=== PATIENT | male | born 1955 | race Caucasian/White ===

== ENCOUNTER 2018-03-31 20:33 | Emergency (ER) | payer OTHER ==
--- NOTE | 2018-03-31 20:54 | Emergency Department Record ---
History of Present Illness - General Chief Complaint: Ankle/Foot Injury Stated Complaint: LT FOOT PAIN Time Seen by Provider: 03/31/18 20:49 Source: Patient Mode of Arrival: Ambulatory Limitations: No limitations - History of Present Illness Initial Comments: 62 yo male presents to ED for evaluation of pain to the left foot following injury while at work. Patient accidentally set a large weighted onto the left foot while moving the object at work. Patient denies other injury on examination, reports that he is able to ambulate with pain but without difficulty. Patient denies health problems at his baseline. MD Complaint: Foot injury Onset/Timin -: Minutes(s) Injury: Toes: Left Type of Injury: Other Place: Work Severity: Moderate Severity scale (1-10): 5 Improves With: Immobilization Worsens With: Palpation Context: Walking - Related Data Previous Rx's Medication Instructions Recorded Tramadol HCl [Ultram] 50 mg PO Q8H PRN #9 tab 03/31/18 Allergies Allergy/AdvReac Type Severity Reaction Status Date / Time NSAIDS (Non-Steroidal Allergy ANAPHYLAXIS Verified 03/31/18 20:40 Anti-Inflamma Travel Screening - Travel/Exposure Within Last 30 Days Have you traveled within the last 30 days?: No Review of Systems Constitutional: Denies: Chills, Fever, Malaise, Night sweats Eyes: Denies: Eye discharge, Eye pain ENT: Denies: Congestion, Ear pain, Epistaxis Respiratory: Denies: Cough, Dyspnea Cardiovascular: Denies: Chest pain, Dyspnea on exertion Endocrine: Denies: Fatigue, Heat or cold intolerance Gastrointestinal: Denies: Abdominal pain, Nausea, Vomiting Genitourinary: Denies: Incontinence, Retention Musculoskeletal: Reports: Arthralgia. Denies: Back pain, Gout, Joint swelling Skin: Denies: Bruising, Change in color Neurological: Denies: Abnormal gait, Confusion, Headache, Seizure Psychiatric: Denies: Anxiety Hematological/Lymphatic: Denies: Anemia, Blood Clots Past Medical History - SOCIAL HISTORY Smoking Status: Current every day smoker Alcohol Use: None Drug Use: None - RESPIRATORY Hx Respiratory Disorders: Yes Hx Asthma: Yes - CARDIOVASCULAR Hx Cardio Disorders: No - NEURO Hx Neuro Disorders: No - GI Hx GI Disorders: No - Hx Genitourinary Disorders: No - ENDOCRINE Hx Endocrine Disorders: No - MUSCULOSKELETAL Hx Musculoskeletal Disorders: No - PSYCH Hx Psych Problems: No - HEMATOLOGY/ONCOLOGY Hx Hematology/Oncology Disorders: No Family Medical History Any Significant Family History?: Yes Hx Cancer: Father, Mother Physical Exam - General General Appearance: Alert, Oriented x3, Cooperative, Mild distress Limitations: No limitations - Head Head exam: Atraumatic, Normocephalic, Normal inspection Head exam detail: negative: Abrasion, Contusion, Olvera's sign, General tenderness, Hematoma, Laceration - Eye Eye exam: Normal appearance. negative: Conjunctival injection, Periorbital swelling, Periorbital tenderness, Scleral icterus - ENT Ear exam: negative: Auricular hematoma, Auricular trauma Nasal Exam: negative: Active bleeding, Discharge, Dried blood, Foreign body Mouth exam: negative: Drooling, Laceration, Muffled voice, Tongue elevation - Neck Neck exam: Normal inspection. negative: Meningismus, Tenderness - Respiratory Respiratory exam: Normal lung sounds bilaterally. negative: Rales, Respiratory distress, Rhonchi, Stridor - Cardiovascular Cardiovascular Exam: Regular rate, Normal rhythm, Normal heart sounds - GI/Abdominal GI/Abdominal exam: Soft. negative: Rebound, Rigid, Tenderness - Rectal Rectal exam: Deferred - exam: Deferred - Extremities Extremities exam: Tenderness (TTP to the distal phalanges of toes 1-4, no pain over the mid-foot/hind-foot on examination.). negative: Calf tenderness, Pedal edema - Back Back exam: Denies: CVA tenderness (R), CVA tenderness (L) - Neurological Neurological exam: Alert, Normal gait, Oriented X3 - Psychiatric Psychiatric exam: Normal affect, Normal mood - Skin Skin exam: Normal color. negative: Abrasion Type of lesion: negative: abrasion Course Vital Signs 03/31/18 20:35 Temperature 98.0 F Pulse Rate 76 Respiratory 16 Rate Blood Pressure 149/73 Pulse Ox 97 - Reevaluation(s) Reevaluation #1: 03/31/18 21:04 Left foot: Non-displaced, comminuted fractures of the 1st-3rd (possible 4th) distal phalanges Patient was updated on all results, appears stable for discharge at this time with podiatric follow-up. Will discharge home with Ultram as needed for pain symptoms as well. Patient was instructed to use hard-soled shoes as well for comfort. Patient was given a prescription for Ultram as part of the treatment for their acute presentation in the emergency department. Patient was specifically counseled regarding the following: -Risk of overdose -Risk of addiction -Risk of mixing prescribed medication with other home medications ( benzodiazipines, muscle relaxers, alcohol) -Risk of narcotic medication while -Safe disposal of narcotic pain medications -Risk of felony for delivering, sharing, or distributing controlled substances I reviewed the Opiate start talking document with the patient. Patient verbalizes understanding of all risks as described above and all questions were answered. The form was signed following our discussion. Patient appears stable for discharge at this time. Disposition Disposition: Discharge Clinical Impression: Toe fracture, left Qualifiers: Encounter type: initial encounter Toe: unspecified toe Fracture type: closed Fracture alignment: nondisplaced Qualified Code(s): S92.912A - Unspecified fracture of left toe(s), initial encounter for closed fracture Disposition: Home, Self-Care Condition: (2) Stable Instructions: Toe Fracture (ED) Additional Instructions: Return to ED if your symptoms worsen or if you have any concerns. Ultram as directed. Follow-up with Dr. Carrington in 3-5 days as directed. Prescriptions: Tramadol HCl [Ultram] 50 mg PO Q8H PRN #9 tab PRN Reason: Pain - Moderate (5-7) Referrals: GRIFFIN CARRINGTON, D.P.M. [DOCTOR OF PODIATRY MEDICINE] - Forms: Patient Portal Access Time of Disposition: 21:48 Quality - Quality Measures Quality Measures: N/A - Blood Pressure Screening Does Patient Have Any of the Following: No Blood Pressure Classification: Hypertensive Reading Systolic Measurement: 149 Diastolic Measurement: 73 Screening for High Blood Pressure: < First Hypertensive BP, F/U Documented > [ [id number]] First Hypertensive Follow-up Interventions: Referral to alternative/primary care provider.
[2018-03-31] MEDS ORDERED: TRAMADOL HCL 50 MG TABLET PO PRN (21:59)
--- NOTE | 2018-04-02 14:31 | RADIOLOGY REPORT ---
EXAM: LEFT FOOT HISTORY: LEFT FOOT CRUSH INJURY. TECHNIQUE: Three views of the left foot were obtained. Comparison: None. Encounter: Initial. FINDINGS: I believe there are comminuted although very minimally displaced fractures of the distal phalanges of the first, second and third and questionably also fourth toes. These fractures involve the sid of all involved toes and extend back proximally for a variable distance. Fracture of the distal phalanx of the great toe probably just extends back into the mid shaft. Fractures of the distal phalanges of the second and third toes extend back at least to the proximal metaphysis and questionably to the DIP joints of the second and third toes. The questionable fracture of the distal phalanx of the fourth toe is not seen to extend into the proximal aspect of the distal phalanx. No other acute fractures of the left foot identified. Small posterior calcaneal spur. IMPRESSION: ESSENTIALLY UNDISPLACED, BUT PROBABLY COMMINUTED FRACTURES OF THE DISTAL PHALANGES OF THE FIRST, SECOND, THIRD, AND POSSIBLY FOURTH TOES DESCRIBED ABOVE. JOB NUMBER: [id number] [facility]
== END 2018-03-31 22:05 | disposition home or self-care (01) ==
LOC: ER 20:33
DX: S92.425A Nondisplaced fracture of distal phalanx of left great toe, initial encounter for closed fracture (principal); S92.535A Nondisplaced fracture of distal phalanx of left lesser toe(s), initial encounter for closed fracture; W22.8XXA Striking against or struck by other objects, initial encounter; Y92.63 Factory as the place of occurrence of the external cause; Y99.0 Civilian activity done for income or pay; F17.210 Nicotine dependence, cigarettes, uncomplicated
CPT/HCPCS: 99283; 99284